=== PATIENT | male | born 1985 | race African-American/Black ===

== ENCOUNTER 2024-06-12 12:13 | Emergency (ER) | payer MEDICAID, OTHER ==
[~2024-06-12] VITALS: Ht 177.8 cm; Wt 112.7 kg
[2024-06-12 13:43] VITALS: BP 120/69; PULSE 93; RESP 18; TEMP 97.9; O2SAT 95
[2024-06-12] MEDS ORDERED: PRED20TA2 PO (13:51)
[2024-06-12] MEDS ORDERED: CEPH500C PO (13:51)
== END 2024-06-12 14:16 | disposition home or self-care (01) ==
LOC: ER 12:13
DX: J03.90 Acute tonsillitis, unspecified (principal)

== ENCOUNTER 2024-09-11 07:04 | Emergency (ER) | payer MEDICAID ==
[~2024-09-11] VITALS: Ht 177.8 cm; Wt 113.6 kg
[~2024-09-11 07:04] MED LIST: CEPH500C PO; PRED20TA2 PO
[2024-09-11 08:00] VITALS: BP 140/73; PULSE 119; RESP 16; O2SAT 95
[2024-09-11] MEDS ORDERED: IBUP-1456 PO (08:26)
[2024-09-11] MEDS ORDERED: AZIT500T66 PO (08:26)
--- NOTE | 2024-09-11 08:27 | ED.PDOC ---
Eye-HPI HPI Comments A 39 YEAR OLD MALE PRESENTS TO THE ED WITH CHIEF COMPLAINT OF SORE THROAT. PATIENT REPORTS THAT HE HAS BEEN EXPERIENCING A SORE THROAT WITH ASSOCIATED SYMPTOMS OF COUGH, NASAL CONGESTION, AND FEVER FOR THE PAST 2 DAYS. PATIENT DENIES ANY N/V/D, CHILLS, HEADACHE, CHEST PAIN, SOB, OR DIZZINESS. Chief Complaint: Flu like Time Seen by MD: 08:23 Primary Care Provider: GER Olsen Notes: Nurses Notes, Medications, Allergies Allergies: Coded Allergies: Ibuprofen (Verified Allergy, Mild, 06/12/24) Home Meds Active Scripts Ibuprofen (Ibuprofen) 800 Mg Tab, 1 TAB PO TID, #30 TAB Prov:ISRAEL CHUN 09/11/24 Azithromycin (Azithromycin) 500 Mg Tab, 1 TAB PO DAILY, #5 TAB Prov:ISRAEL CHUN 09/11/24 Prednisone (Prednisone) 20 Mg Tab, 60 MG PO BS, #18 TAB Prov:ISREAL CHUN 06/12/24 Cephalexin Monohydrate (Cephalexin) 500 Mg Cap, 1 CAP PO QID, #28 CAP Prov:ISRAEL CHUN 06/12/24 Information Source: Patient Mode of Arrival: Ambulatory Timing: Days Duration: Since onset Prehospital treatment: None Quality: Pain Lids: Normal Conjunctiva: Normal Cornea: Normal Pupils: Normal EOM: Normal Fundus: Normal Anterior chamber: Normal Mouth Location: Pharynx Mouth: Normal ENT Ear Exam: Normal, Normal, Normal Nose: Normal Sinuses: Normal Oropharynx: Tonsillar hypertrophy, Red Onset: Spontaneous Throat Exposed to: None History of: None Associated signs and symptoms: Nasal Symptoms, Sore Throat Past Medical History PAST MEDICAL HISTORY: Denies Surgical History: Denies all surgeries Family History Family History: Reviewed,noncontributory to illness Social History Smoker: Non-Smoker Alcohol: Denies ETOH Use Drugs: Denies Drug Use Lives In: Home Constitutional: reports: fever; denies: chills, diaphoresis, fatigue, malaise, sweats, weakness, others EENTM: reports: nose congestion, throat pain, throat swelling; denies: blurred vision, double vision, ear bleeding, ear discharge, ear drainage, ear pain, ear ringing, eye pain, eye redness, hearing loss, mouth pain, mouth swelling, nasal discharge, nose bleeding, nose pain, photophobia, tearing, voice changes, others Respiratory: reports: cough; denies: hemoptysis, orthopnea, SOB at rest, shortness of breath, SOB with excertion, stridor, wheezing, others Cardiovascular: denies: chest pain, dizzy spells, diaphoresis, Dyspnea on exertion, edema, irregular heart beat, left arm pain, lightheadedness, palpitations, PND, syncope, others Gastrointestinal: denies: abdomen distended, abdominal pain, blood streaked bowels, constipated, diarrhea, dysphagia, difficulty swallowing, hematemesis, melena, nausea, poor appetite, poor fluid intake, rectal bleeding, rectal pain, vomiting, others Genitourinary: denies: burning, dysuria, flank pain, frequency, hematuria, incontinence, penile discharge, penile sore, pain, testicle pain, testicle swelling, urgency, others Neurological: denies: dizziness, fainting, headache, left sided numbness, left sided weakness, numbness, paresthesia, pre-existing deficit, right sided numbness, right sided weakness, seizure, speech problems, tingling, tremors, weakness, others Musculoskeletal: denies: back pain, gout, joint pain, joint swelling, muscle pain, muscle stiffness, neck pain, others Integumetry: denies: bruises, change in color, change in hair/nails, dryness, laceration, lesions, lumps, rash, wounds, others Allergic/Immunocompromised: denies: Difficulty Healing, Frequent Infections, Hives, Itching, others Hematologic/Lymphatic: denies: anemia, blood clots, easy bleeding, easy bruising, swollen glands, others Endocrine: denies: excessive hunger, excessive sweating, excessive thirst, excessive urination, flushing, intolerance to cold, intolerance to heat, unexplained weight gain, unexplained weight loss, others Psychiatric: denies: anxiety, bipolar disorder, depression, hopeless, panic disorder, schizophrenia, sleepless, suicidal, others All Other Systems: Reviewed and Negative Physical Exam General Appearance: No Apparent Distress, Normal HEENT: PERRL/EOMI, Pharyngeal Erythema (TONSILLAR SWELLING, NO EXUDATES. ), TMs Normal Neck: Full Range of Motion, Non-Tender, Normal, Normal Inspection Respiratory: Chest Non-Tender, Lungs Clear, No Accessory Muscle Use, No Respiratory Distress, Normal Breath Sounds Cardiovascular: No Edema, No JVD, No Murmur, No Gallop, Normal Peripheral Pulses, Regular Rate/Rhythm Breast Exam: Deferred Gastrointestinal: No Organomegaly, Non Tender, No Pulsatile Mass, Normal Bowel Sounds, Soft Genitalia: Deferred Pelvic: Deferred Rectal: Deferred Extremities: No calf tenderness, Normal capillary refill, Normal inspection, Normal range of motion, Non-tender, No pedal edema Musculoskeletal : Apperance: Normal Neurologic: Alert, family resource management professor II-XII nml as Tested, No Motor Deficits, Normal Affect, Normal Mood, No Sensory Deficits Cerebellar Function: Normal Reflexes: Normal Skin: Dry, Normal Color, Warm Peripheral Pulses: 2+ carotid (R), 2+ carotid (L) Lymphatic: No Adenopathy Was a procedure done? Was a procedure done?: No EENT DIFF Eye: N/A Ear: Otitis Media, Pharyngitis, N/A Nose: N/A Sore Throat: Pharyngitis, Viral Pharyngitis, URI X-Ray, Labs, Meds, VS Vital Signs Date Time Temp Pulse Resp B/P (MAP) Pulse Ox O2 Delivery O2 Flow Rate FiO2 09/11/24 08:36 99.3 09/11/24 08:00 99.3 119 16 140/73 (95) 95 99.3 09/11/24 07:48 20 93 Room Air 0 09/11/24 07:41 99.1 118 20 157/94 (115) 93 Current Medications Medications (Trade) Dose Ordered Sig/Mary Route Start Time Stop Time Status Last Admin Ceftriaxone Sodium (Rocephin) 1,000 mg ONCE ONCE IM 09/11/24 08:30 09/11/24 08:31 DC 09/11/24 08:36 Acetaminophen (Tylenol Tablet) 1,000 mg ONCE ONCE PO 09/11/24 08:30 09/11/24 08:31 DC 09/11/24 08:36 X-Ray, Labs, Meds, VS Comment - I reviewed the following notes from patient's past medical encounters: 06/12/24 FOR TONSILLITIS - The following tests were ordered, and results were reviewed by me: DARREN - Additional information was gathered from interviewing the following independent Historian: NA - I reviewed and agreed with the following test results read by other provider: NA - I discussed treatments and results with medical personnel. TREATMENT: ROCEPHIN 1GM IM Time of 1ST Reevaluation: 09:00 Reevaluation 1ST: Improved Patient Education/Counseling: Diagnosis, Treatment, Need For Follow Up Family Education/Counseling: Diagnosis, Treatment, Need For Follow Up Medical Screening: No EMC Exist At This Time Departure 1 Departure Time of Disposition: 09:10 Impression: Primary Impression: Acute erythematous tonsillitis Disposition: HOME / SELF CARE / HOMELESS Condition: Stable Additional Instructions: FOLLOW UP WITH PCP WITHIN 2-3 DAYS. e-Prescriptions Acetaminophen (Tylenol Extra Strength Fo) 500 Mg Tab 500 MG PO QID, #30 TAB Prov: ISRAEL CHUN 09/11/24 Azithromycin (Azithromycin) 500 Mg Tab 1 TAB PO DAILY, #5 TAB Prov: ISRAEL CHUN 09/11/24 Discharged With: Self, Relative Critical Care Note Critical Care Time?: No Stability Stability form required: No Heart Score Heart Score: Heart Score Response (Comments) Value History N/A 0 EKG N/A 0 Age N/A 0 Risk Factors N/A 0 Troponin N/A 0 Total 0 I personally scribed for ISRAEL CHUN ([email or web address]) on 09/11/24 at 08:27. Electronically submitted by Rell Perea ([email or web address]). ISRAEL CHUN Sep 11, 2024 08:27
[2024-09-11 08:36] VITALS: TEMP 99.3
[2024-09-11] MEDS: ACETAMINOPHEN 325 MG TAB PO ONE (08:36)
[2024-09-11] MEDS: cefTRIAXone SOD 1,000 MG VL IM ONE (08:36)
[2024-09-11] MEDS ORDERED: ACET-1304 PO (08:53)
== END 2024-09-11 08:53 | disposition home or self-care (01) ==
LOC: ER 07:04
DX: J03.90 Acute tonsillitis, unspecified (principal); Z88.6 Allergy status to analgesic agent; Z79.899 Other long term (current) drug therapy
CPT/HCPCS: 96372; 99283; J0696